=== PATIENT | female | born 1970 | race American Indian/Alaskan Native ===

== ENCOUNTER 2020-06-12 07:40 | Day surgery (SDC) | payer MEDICARE ==
[~2020-06-12 07:40] MED LIST: SODIUM CHLORIDE 0.9% 1000 ML 1,000 ML IV SCH
[2020-06-12] MEDS ORDERED: fentaNYL 100 MCG/2 ML INJ IV PRN (08:19)
[2020-06-12] MEDS ORDERED: ONDANSETRON 4 MG/2 ML INJ IV PRN (08:19)
[2020-06-12] MEDS ORDERED: HEPARIN 10,000 UNITS/10 ML VIAL ONE (08:36)
[2020-06-12] MEDS ORDERED: SODIUM CHLORIDE 0.9% 250ML 250 ML ONE (08:36)
[2020-06-12] MEDS ORDERED: GELATIN SPONGE SIZE 100 TP ONE ×3 (08:36→09:15)
[2020-06-12] MEDS ORDERED: PROTAMINE SULFATE 50 MG/5 ML INJ ONE (08:40)
[2020-06-12] MEDS ORDERED: THROMBIN (RECOMBINANT) 5,000 UNIT VIAL TP ONE ×2 (08:40→09:14)
--- NOTE | 2020-06-12 08:45 | Anesthesia Consultation ---
Anesthesia Consult and Med Hx Date of service: 06/12/20 - Airway Anesthetic Teeth Evaluation: Good ROM Head & Neck: Adequate Mental/Hyoid Distance: Adequate Mallampati Class: Class III Intubation Access Assessment: Possibly Difficult - Pulmonary Exam CTA: Yes - Cardiac Exam Cardiac Exam: RRR - Pre-Operative Health Status ASA Pre-Surgery Classification: ASA3 Proposed Anesthetic Plan: General - Pulmonary Hx Smoking: Yes (quit 2008) Hx Respiratory Symptoms: Yes (occasional PAUL since COVID PNA 1 mo ago) Hx Pneumonia: Yes (COVID PNA 05/08/2020) - Cardiovascular System Hx Hypertension: Yes Hx Coronary Artery Disease: Yes (mild, nonobstructive on [facility] 12/2018) Hx Heart Attack/AMI: No Hx Percutaneous Transluminal Coronary Angioplasty (PTCA): No Hx Cardia Arrhythmia: No Hx Valvular Heart Disease: No - Central Nervous System CVA: No - Endocrine Hx End Stage Renal Disease: Yes (last HD 06/11/20) Hx Liver Disease: No Hx Insulin Dependent Diabetes: Yes (will decreased basal insulin pump rate by 50% in preop. ) Hx Thyroid Disease: No - Hematic Hx Anemia: Yes - Other Systems Hx Obesity: Yes (BMI 34) - Additional Comments Anesthesia Medical History Comments: No hx anesthetic complications. Cardiology records from 11/2019 reviewed: negative stress test and normal EF on TTE. Also reviewed discharge summary from 05/2020 hospitalization.
--- NOTE | 2020-06-12 08:45 | Anesthesia Day of Surgery ---
Anesthesia Day of Surgery - Day of Surgery Patient Examined: Yes Patient H&P Reviewed: Yes Patient is NPO: Yes
[2020-06-12] MEDS ORDERED: DEXTROSE 50% IN WATER (25GM) 50 ML SYRINGE IV ONE ×2 (08:52→11:43)
[2020-06-12 08:55] LABS: Hematocrit 29.1 % (30.3-42.9); Hemoglobin 9.5 gm/dl (10.1-14.3); Mean Corpuscular HGB Conc 33 % (30-34); Mean Corpuscular Volume 98 fl (79-97); Platelet Count 244 K/mm3 (140-440); Red Blood Count 2.96 M/mm3 (3.65-5.03); Red Cell Distribution Width 19.7 % (13.2-15.2)
[2020-06-12] MEDS ORDERED: MIDAZOLAM 2 MG/2 ML INJ IV NR (09:00)
[2020-06-12] MEDS ORDERED: HEPARIN 10,000 UNITS/10 ML VIAL IV ONE (09:13)
[2020-06-12] MEDS ORDERED: SODIUM CHLORIDE 0.9% IRR 1,500 ML BOTTLE IR ONE (09:13)
[2020-06-12] MEDS ORDERED: SODIUM CHLORIDE 0.9% 250 ML IVPB IV ONE (09:14)
[2020-06-12] MEDS ORDERED: HYDROmorphone 1 MG/1 ML INJ ONE ×2 (09:15→11:59)
[2020-06-12] MEDS ORDERED: propofoL 200 MG/20 ML VIAL IV ONE (09:16)
[2020-06-12] MEDS ORDERED: DEXTROSE 50% IN WATER (25GM) 50 ML VIAL IV SCH (09:30)
[2020-06-12] MEDS ORDERED: ceFAZolin/STERILE WATER 2 GM/20 ML SYRINGE IV NR (10:00)
[2020-06-12] MEDS ORDERED: ePHEDrine SULFATE 50 MG/1 ML INJ ONE (11:00)
[2020-06-12] MEDS ORDERED: LIDOCAINE MPF (2%) 20 MG/1 ML VIAL 5 ML ONE (11:01)
[2020-06-12] MEDS ORDERED: ONDANSETRON 4 MG/2 ML INJ ONE (11:22)
--- NOTE | 2020-06-12 11:34 | Post Operative Note ---
Date of procedure: 06/12/20 Pre-op diagnosis: ESRD Post-op diagnosis: same Procedure: Right Arm AV Fistula Creation Anesthesia: GETA Surgeon: STEVIE MEMBRENO Estimated blood loss: minimal Pathology: none Condition: stable Disposition: PACU
--- NOTE | 2020-06-12 11:36 | Short Stay Summary ---
Short Stay Documentation Date of service: 06/12/20 - History H&P: obtained from office Past Medical History: ESRD, hypertension - Allergies and Medications Current Medications: Allergies No Known Allergies Allergy (Unverified 06/11/20 15:28) Home Medications Medication Instructions Recorded Confirmed Last Taken Type Albuterol Sulfate [Proventil Hfa] 2 puff IH Q4H PRN 06/11/20 06/12/20 06/10/20 History Dulaglutide [Trulicity] 1.5 mg SQ QWEEK 06/11/20 06/11/20 06/08/20 History Insulin Aspart Prot/Aspart(Nf) 0 units SQ CONT 06/11/20 06/12/20 06/12/20 09:00 History [Novolog Mix 70/30] Omeprazole 40 mg PO DAILY 06/11/20 06/11/20 06/11/20 History Vit B Complx C/Folic Acid/Zinc 0.8 mg PO DAILY 06/11/20 06/11/20 06/11/20 History [Dialyvite 800-Zinc 15 Tab] calcitrioL [Rocaltrol] 2 tab PO QDAY 06/11/20 06/11/20 06/11/20 History Active Medications Cefazolin Sodium (Cefazolin/Sterile Water 2 Gm/20 Ml Syringe) 2 gm IV PREOP NR Stop: 06/12/20 21:00 Fentanyl (Fentanyl 100 Mcg/2 Ml Inj) 50 mcg IV Q5MIN PRN PRN Reason: Pain , Severe (7-10) Stop: 06/12/20 23:00 Sodium Chloride (Nacl 0.9% 1000 Ml) 1,000 mls @ 42 mls/hr IV DIRECT OSMAN Stop: 06/12/20 23:59 Last Admin: 06/12/20 08:45 Dose: 42 mls/hr Documented by: Midazolam HCl (Midazolam 2 Mg/2 Ml Inj) 2 mg IV PREOP NR Stop: 06/12/20 23:59 Last Admin: 06/12/20 09:05 Dose: 2 mg Documented by: Ondansetron HCl (Ondansetron 4 Mg/2 Ml Inj) 4 mg IV ONCE PRN PRN Reason: Nausea And Vomiting Stop: 06/12/20 23:00 - Physical exam General appearance: no acute distress Lungs: Normal air movement Heart: Regular rate Extremities: no ischemia - Hospital course Hospital course: the patient was taken to the operating room and had a right arm av fistula creation performed. please refer to the operative note concerning details of the procedure. the patient tolerated the procedure well and was discharged home in stable condition. - Disposition Condition at discharge: Stable Disposition: [id number] TO HOME OR SELFCARE Short Stay Discharge Plan Follow up with: COLETTE POOL MD [Primary Care Provider] - 7 Days
[2020-06-12] MEDS ORDERED: DEXTROSE 50% IN WATER (25GM) 50 ML SYRINGE IV SCH (12:00)
[2020-06-12] MEDS ORDERED: oxyCODONE /ACETAMINOPHEN 5-325MG TAB PO PRN ×2 (12:00→12:30)
--- NOTE | 2020-06-12 12:03 | Operative Report ---
STAFF SURGEON: Dr. Collins Bhagat. PREOPERATIVE DIAGNOSIS: End-stage renal disease. POSTOPERATIVE DIAGNOSIS: End-stage renal disease. PROCEDURE PERFORMED: Right arm brachiocephalic AV fistula creation. COMPLICATIONS: None. ESTIMATED BLOOD LOSS: Less than 10 mL. ANESTHESIA: General. INDICATIONS FOR PROCEDURE: This is a 49-year-old female with end-stage renal disease, on hemodialysis via right IJ PermCath who is in need of upper extremity access. The patient had vein mapping of the right upper arm, which demonstrated marginal upper cephalic vein. It was felt that the patient would be able to undergo AV fistula creation. The patient was explained the risks, benefits and alternatives of the procedure, expressed understanding and wished to proceed. DESCRIPTION OF PROCEDURE: After appropriate consent was obtained, the patient was brought back to the operating room and placed on the operating table in supine position with the right arm extended. The patient was given appropriate medication for general anesthesia, had LMA placed without difficulty. The right arm was prepped and draped in the usual sterile fashion with ChloraPrep. Appropriate preoperative antibiotics were administered and appropriate time-out performed indicating correct patient, procedure, and site of procedure. We then began the operation by making a transverse incision below the antecubital fossa. This was carried through the subcutaneous tissue with a combination of blunt dissection and electrocautery. The cephalic vein was identified and found to be suitable for venous outflow. This was then mobilized for appropriate distance both proximally and distally. We then proceeded to continue our dissection medially through the bicipital aponeurosis to expose the brachial artery. Brachial artery at this level was also found to be marginal, but could be suitable for arterial inflow. This was then mobilized for appropriate distance both proximally and distally. The patient was then given 5000 units of unfractionated heparin. We then proceeded to take down the branches of the cephalic vein with silk sutures and were transected. Then, placed a hemostat across the distal aspect of the cephalic vein, it was transected. The cephalic vein was then flushed with heparinized saline, which flushed nicely. The anterior surface was marked. The stump was ligated with silk suture. We then proceeded to place vascular clamps on the brachial artery, both proximally and distally. Longitudinal arteriotomy was made and extended with Mederos scissors. An end-to-side anastomosis was performed with a running 6-0 Prolene suture. Once complete, flow was reestablished through the fistula, which had a palpable thrill, which was confirmed by Doppler. After several beats, the distal clamp was removed. We then proceeded to obtain hemostasis along our suture line, which was obtained with hemostatic agents. Once we were satisfied with hemostasis, the wound was then closed with deep subcutaneous layer with interrupted 3-0 PDS and the skin was approximated with a running 4-0 Monocryl with Dermabond dressing. The patient tolerated the procedure well, emerged from the general anesthesia, and the LMA removed and was sent to recovery in stable condition. All the sponges, instrument and needle counts were correct at completion of the operation. JOB# [id number] RASHAUN/MONIQUE
[2020-06-12] MEDS ORDERED: HYDROmorphone 1 MG/1 ML INJ IV PRN (12:30)
--- NOTE | 2020-06-12 13:21 | Post Anesthesia Evaluation ---
- Post Anesthesia Evaluation Patient Participated: Yes Airway Patent: Yes Stable Respiratory Function: Yes Nausea/Vomiting: No Temp > 96.8F: Yes Pain Manageable: Yes Adequeate Hydration: Yes Anesthesia Complications: No
[2020-06-12 15:24] VITALS: BP 127/71
== END 2020-06-12 07:41 | disposition home or self-care (01) ==
LOC: OR 07:40
PROVIDERS: ATTEND Surgery Vascular Surgery
DX: I12.0 Hypertensive chronic kidney disease with stage 5 chronic kidney disease or end stage renal disease (principal); E11.22 Type 2 diabetes mellitus with diabetic chronic kidney disease; N18.6 End stage renal disease; I25.10 Atherosclerotic heart disease of native coronary artery without angina pectoris; E66.9 Obesity, unspecified; D64.9 Anemia, unspecified; Z87.01 Personal history of pneumonia (recurrent); Z98.891 History of uterine scar from previous surgery; Z79.4 Long term (current) use of insulin; Z98.890 Other specified postprocedural states; Z87.891 Personal history of nicotine dependence; Z98.42 Cataract extraction status, left eye; Z68.34 Body mass index [BMI] 34.0-34.9, adult
CPT/HCPCS: 36415; 36821; 80048; 82962; 85027; A4649; J0690; J1170; J1644; J2250; J2405; J2704; J7030; J7050; J2720